=== PATIENT | male | born 1995 | race African-American/Black ===

== ENCOUNTER 2019-06-14 16:38 | Emergency (ER) | payer OTHER ==
[~2019-06-14] VITALS: Ht 175.3 cm; Wt 71.5 kg
[2019-06-14] MEDS ORDERED: LANTINJ4 SC ×2 (17:01)
[2019-06-14 17:20] LABS: BASO % 0.2 % (0.0-1.0); EOS # 0.1 10^3/uL (0.0-0.5); EOS % 0.7 % (0.0-3.0); HEMATOCRIT 41.9 % (42.0-52.0); HEMOGLOBIN 13.8 g/dl (13.5-17.5); LYMPH # 2.3 10^3/uL (1.5-5.0); LYMPH % 22.8 % (24.0-44.0); MEAN CORPUSCULAR HEMOGLOBIN 28.3 pg (27.0-33.0); MEAN CORPUSCULAR HGB CONC 32.9 g/dl (32.0-36.5); MONO % 10.2 % (0.0-5.0); NEUTROPHILS # 6.8 10^3/uL (1.5-8.5); NEUTROPHILS % 65.9 % (36.0-66.0); PLATELET COUNT, AUTOMATED 271 10^3/uL (150-450); RED BLOOD COUNT 4.87 10^6/uL (4.30-6.10); WHITE BLOOD COUNT 10.2 10^3/uL (4.0-10.0)
[2019-06-14] MEDS ORDERED: NS 1,000 ML IV ONE (17:30)
[2019-06-14] MEDS ORDERED: MAGIC MOUTHWASH SUSPENSION BTL SS ONE (17:30)
[2019-06-14] MEDS ORDERED: dexameTHASONE 20 MG/5 ML VIAL (J1100) IV ONE (17:30)
[2019-06-14 17:54] LABS: HEMOGLOBIN A1c 8.7 %
[2019-06-14 17:59] LABS: BLOOD UREA NITROGEN 15 MG/DL (7-18); C REACTIVE PROTEIN QUANTITATIV 1.17 MG/DL (0.00-0.30); CALCIUM LEVEL 8.8 MG/DL (8.5-10.1); CARBON DIOXIDE LEVEL 26 MEQ/L (21-32); CHLORIDE LEVEL 101 MEQ/L (98-107); GLOMERULAR FILTRATION RATE > 60.0 (>60); GLUCOSE, FASTING 316 MG/DL (70-100); POTASSIUM SERUM 4.7 MEQ/L (3.5-5.1); SODIUM LEVEL 134 MEQ/L (136-145)
[2019-06-14 18:30] VITALS: BP 137/97
[2019-06-14] MEDS ORDERED: MAGICMW SS ×2 (18:34→18:59)
[2019-06-15 11:26] LABS: HIV 1&2 SCREEN CENTAUR NEGATIVE (NEGATIVE)
== END 2019-06-14 19:08 | disposition home or self-care (01) ==
LOC: EDBD 16:38 → M ED 16:38
DX: K12.30 Oral mucositis (ulcerative), unspecified (principal); K13.79 Other lesions of oral mucosa; E10.65 Type 1 diabetes mellitus with hyperglycemia; Z79.4 Long term (current) use of insulin
CPT/HCPCS: 80048; 83036; 85025; 86140; 87252; 87389; 96361; 96374; 99284; J1100